=== PATIENT | male | born 1965 | race Caucasian/White ===

== ENCOUNTER 2019-03-07 16:10 | Emergency (ER) | payer OTHER ==
[~2019-03-07] VITALS: Ht 182.9 cm; Wt 65.8 kg
[2019-03-07 16:48] VITALS: Ht 182.9 cm; Wt 65.8 kg
[2019-03-07 18:15] LABS: CALCIUM 8.1 mg/dL (8.5-10.1); CARBON DIOXIDE 28.5 mmol/L (21-32); POTASSIUM SERUM 4.3 mmol/L (3.5-5.1)
[2019-03-07 18:17] LABS: BASOPHIL % 0.5 % (0-2); PLATELET COUNT 211 x10^3mcL (130-400); RED CELL DISTRIBUTION WIDTH 12.4 % (11.5-14.5)
[2019-03-07 18:22] LABS: BILIRUBIN TOTAL 0.2 mg/dL (0.20-1.00)
[2019-03-07 18:23] LABS: ALBUMIN 2.8 g/dL (3.4-5.0)
[2019-03-07 20:48] VITALS: BP 183/101
== END 2019-03-07 20:48 | disposition home or self-care (01) ==
LOC: ED 16:10
PROVIDERS: Emergency Medicine
DX: E11.22 Type 2 diabetes mellitus with diabetic chronic kidney disease (principal); N18.9 Chronic kidney disease, unspecified
CPT/HCPCS: 36415; Q0092